=== PATIENT | female | born 1965 | race Caucasian/White ===

== ENCOUNTER 2020-09-19 04:50 | Emergency (ER) | payer OTHER ==
[~2020-09-19] VITALS: Ht 167.6 cm; Wt 85.8 kg
--- NOTE | 2020-09-19 05:07 | NUR ---
Patient presents to ER c/o RLQ abd pain since 0200. Patient states the pain woke her up. Patient has never had this pain before. Denies N/V/D, urinary symptoms, or vaginal bleeding. Patient is in obvious discomfort. Respirations even and unlabored.
[2020-09-19] MEDS ORDERED: SODIUM CHLORIDE 0.9% 1,000ML IVBOLUS ONE (05:30)
[2020-09-19] MEDS ORDERED: HYDROmorphone 1 MG/ML, 1ML INJ IV ONE (05:30)
[2020-09-19] MEDS ORDERED: ONDANSETRON 2MG/ML, 2ML IVPush ONE (05:30)
[2020-09-19] MEDS ORDERED: ONDANSETRON 2MG/ML, 2ML ONE (05:39)
[2020-09-19] MEDS ORDERED: HYDROmorphone 1 MG/ML, 1ML INJ ONE (05:39)
[2020-09-19 05:41] LABS: BASOPHILS % (AUTO) 2 % (0-1); EOSINOPHILS % (AUTO) 3 % (1-7); LYMPHOCYTES % (AUTO) 32 % (22-44); MEAN CORPUSCULAR HEMOGLOBIN 31.6 pg (27.0-34.8); MEAN CORPUSCULAR HGB CONC 33.6 g/dL (32.4-35.8); MEAN PLATELET VOLUME 8.8 fL (7.4-10.4); MONOCYTES % (AUTO) 5 % (2-9); NEUTROPHILS % (AUTO) 58 % (42-75); PLATELET COUNT 240 x10^3/uL (130-400); RED BLOOD COUNT 4.43 x10^6/uL (3.82-5.3)
[2020-09-19 05:51] LABS: ALANINE AMINOTRANSFERASE 19 U/L (12-78); ALBUMIN 3.6 g/dL (3.4-5.0); ANION GAP 7 mmol/L (5-15); CALCIUM 8.7 mg/dL (8.5-10.1); CHLORIDE 112 mmol/L (98-107); CREATININE 1.21 mg/dL (0.55-1.02)
--- NOTE | 2020-09-19 05:52 | NUR ---
Medicated patient per mar. Advised patient a urine is needed. Patient states she is unable to provide one at this time.
[2020-09-19 05:54] LABS: ALKALINE PHOSPHATASE 93 U/L (45-117); BILIRUBIN,TOTAL 0.9 mg/dL (0.2-1.0); TOTAL PROTEIN 7.1 g/dL (6.4-8.2)
[2020-09-19 06:07] LABS: MD SCAN
--- NOTE | 2020-09-19 06:15 | NUR ---
Patient returned from CT. States she is feeling better.
[2020-09-19] MEDS ORDERED: OMNIPAQUE 350 MG/ML, 100ML BOTTLE ONE (06:39)
--- NOTE | 2020-09-19 06:49 | NUR ---
Report given to BARBARA Blackman. Patient care transferred.
[2020-09-19] MEDS ORDERED: KETOROLAC 30 MG/1 ML ONE (07:11)
[2020-09-19] MEDS ORDERED: KETOROLAC 30 MG/1 ML IVPush ONE (07:30)
[2020-09-19 07:49] LABS: MICROSCOPIC NOT IND
[2020-09-19 08:05] VITALS: BP 137/80
--- NOTE | 2020-09-19 08:06 | NUR ---
[facility] given discharge instructions and they have confirmed that they understand the instructions. Patient ambulatory with steady gait.
== END 2020-09-19 08:09 | disposition home or self-care (01) ==
LOC: ED 07:32
DX: N83.291 Other ovarian cyst, right side (principal); R10.31 Right lower quadrant pain
CPT/HCPCS: 36415; 74177; 80053; 81003; 82378; 83690; 85025; 86304; 93005; 96374; 96375; 99285; J1170; J1885; J2405; J7030; Q9967

== ENCOUNTER 2020-09-20 09:04 | Emergency (ER) | payer OTHER ==
[~2020-09-20] VITALS: Ht 167.6 cm; Wt 85.6 kg
--- NOTE | 2020-09-20 09:41 | NUR ---
PT BROUGHT BACK TO ROOM FROM TRIAGE VIA WHEELCHAIR. PT STATED THAT SHE WAS SEEN IN THE ER YESTERDAY FOR LOWER ABDOMINAL PAIN. PT HAD CT SCAN YESTERDAY THAT SHOWED OVARIAN MASS AND SHE IS SUPPOSED TO FOLLOW UP WITH [employer]ICE TODAY, BUT THE PAIN TODAY HAS BEEN TOO SEVERE. PT STATED THAT HE PAIN IN 03/11/ DENIES ANY N/V/D. PT STATED THAT SHE WAS SENT HOME WITH A PERSCRIPTION FOR NORCO, BUT IT DID NOT HELP WITH THE PAIN.
[2020-09-20] MEDS ORDERED: ONDANSETRON 2MG/ML, 2ML ONE (09:52)
[2020-09-20] MEDS ORDERED: HYDROmorphone 1 MG/ML, 1ML INJ ONE ×2 (09:52→12:24)
[2020-09-20] MEDS ORDERED: HYDROmorphone 1 MG/ML, 1ML INJ IV ONE ×2 (10:00→12:30)
[2020-09-20] MEDS ORDERED: ONDANSETRON 2MG/ML, 2ML IVPush ONE (10:00)
[2020-09-20] MEDS ORDERED: SODIUM CHLORIDE FLUSH 10ML SYR IVF ONE (10:00)
--- NOTE | 2020-09-20 10:15 | NUR ---
US AT BEDSIDE
[2020-09-20 10:18] LABS: BASOPHILS % (AUTO) 0 % (0-1); EOSINOPHILS % (AUTO) 0 % (1-7); LYMPHOCYTES % (AUTO) 12 % (22-44); MEAN CORPUSCULAR HEMOGLOBIN 31.6 pg (27.0-34.8); MEAN CORPUSCULAR HGB CONC 33.6 g/dL (32.4-35.8); MEAN PLATELET VOLUME 8.9 fL (7.4-10.4); MONOCYTES % (AUTO) 7 % (2-9); NEUTROPHILS % (AUTO) 81 % (42-75); PLATELET COUNT 242 x10^3/uL (130-400); RED BLOOD COUNT 4.05 x10^6/uL (3.82-5.3); RED CELL DISTRIBUTION WIDTH 13.1 % (9.6-15.2)
[2020-09-20 10:19] LABS: MD NO
--- NOTE | 2020-09-20 11:39 | NUR ---
PT RESTING COMFORTABLY IN [facility]. FAMILY AT BEDSIDE. CALL LIGHT WITHIN REACH
--- NOTE | 2020-09-20 12:27 | NUR ---
PT GIVEN SECOND DOSE OF IV DILAUDID. PT ABLE TO DC ONE OFF O2.
[2020-09-20 13:51] VITALS: BP 118/71
--- NOTE | 2020-09-20 14:02 | NUR ---
PT TOLERATING RA. DISCHARGE INSTRUCTIONS REVIEWED WITH PT. ALL QUESTIONS ANSWERED AT THIS TIME.
== END 2020-09-20 14:04 | disposition home or self-care (01) ==
LOC: ED 10:11
DX: N83.291 Other ovarian cyst, right side (principal); R10.31 Right lower quadrant pain; R11.0 Nausea
CPT/HCPCS: 36415; 76856; 85025; 96374; 96375; 96376; 99285; J1170; J2405